=== PATIENT | female | born 1975 | race Hispanic/Latino ===

== ENCOUNTER 2022-12-02 13:06 | Day surgery (SDC) | payer BC ==
[2022-12-02 14:31] VITALS: BMI 31.2
[2022-12-02] MEDS ORDERED: hydrALAZINE 20 MG/ML VIAL SLOW IVP PRN (15:13)
[2022-12-02 15:50] LABS: Creatinine, Urine 173.91 mg/dL (47-110)
[2022-12-02 16:55] LABS: ALT (SGPT) 15 U/L (8-55); AST (SGOT) 19 U/L (5-34); Albumin 3.4 g/dL (3.5-5.0); Alkaline Phosphatase 98 U/L (40-110); Anion Gap 13 mmol/L (10-20); BUN (Urea Nitrogen) 12 mg/dL (7.0-18.7); Bilirubin, Total 0.2 mg/dL (0.2-1.2); Calc. Creatinine Clearance 129 mL/min (70-130); Calcium 9.1 mg/dL (7.8-10.44); Carbon Dioxide 19 mmol/L (22-29); Chloride 107 mmol/L (98-107); Estimated GFR 105; Globulin 3.6 g/dL (2.4-3.5); Glucose 78 mg/dL (70-105); Potassium 3.9 mmol/L (3.5-5.1); Sodium 135 mmol/L (136-145)
[2022-12-02 17:03] LABS: #Basophils 0.1 10x3/uL (0.0-0.2); #Eosinphils 0.2 10x3/uL (0.0-0.5); #Monocytes 1.2 10x3/uL (0.0-1.1); #Neutrophils 7.8 10x3/uL (1.5-8.4); %Basophils 0.4 % (0.0-2.0); %Eosinophils 1.4 % (0.0-6.0); %Lymphocytes 26.2 % (18.0-47.0); %Monocytes 9.6 % (0.0-10.0); Hematocrit 33.1 % (34.9-44.5); Hemoglobin 10.9 g/dL (12.0-15.5); Mean Corpuscular HGB CONC 32.9 g/dL (32.0-36.0); Mean Corpuscular Volume 91.2 fl (81.6-98.3); Mean Platelet Volume 10.7 fl (7.4-10.4); Platelet Count 337 10x3/uL (150-450); RBC Distribution Width 13.2 % (11.5-14.5); Red Blood Cell (RBC) Count 3.63 10x6/uL (3.90-5.03); White Blood Cell (WBC) Count 12.8 10x3/uL (3.5-10.5)
== END 2022-12-02 17:30 | disposition home or self-care (01) ==
LOC: CSHERS 13:06 → CSHLD/OP 13:29
PROVIDERS: ATTEND Family Medicine
DX: O16.3 Unspecified maternal hypertension, third trimester (principal); O99.283 Endocrine, nutritional and metabolic diseases complicating pregnancy, third trimester; E03.9 Hypothyroidism, unspecified; Z3A.31 31 weeks gestation of pregnancy
CPT/HCPCS: 36415; 80053; 82570; 84156; 85025; 99283

== ENCOUNTER 2022-12-29 17:18 | Observation (INO) | payer BC ==
[2022-12-29 17:56] VITALS: BMI 28.3
[2022-12-29] MEDS ORDERED: hydrALAZINE 20 MG/ML VIAL SLOW IVP PRN ×2 (18:06→19:36)
[2022-12-29] MEDS ORDERED: Acetaminophen 500 MG TAB PO SCH (18:15)
[2022-12-29 18:56] LABS: #Eosinphils 0.2 10x3/uL (0.0-0.5); #Monocytes 0.9 10x3/uL (0.0-1.1); %Basophils 0.4 % (0.0-2.0); %Eosinophils 1.4 % (0.0-6.0); %Monocytes 8.3 % (0.0-10.0); Hematocrit 32.3 % (34.9-44.5); Hemoglobin 10.8 g/dL (12.0-15.5); Mean Corpuscular HGB CONC 33.4 g/dL (32.0-36.0); Mean Corpuscular Hemoglobin 29.3 pg (27.0-33.0); Mean Corpuscular Volume 87.8 fl (81.6-98.3); Mean Platelet Volume 10.8 fl (7.4-10.4); Platelet Count 336 10x3/uL (150-450); RBC Distribution Width 13.3 % (11.5-14.5); Red Blood Cell (RBC) Count 3.68 10x6/uL (3.90-5.03); White Blood Cell (WBC) Count 10.5 10x3/uL (3.5-10.5)
[2022-12-29 19:01] LABS: ALT (SGPT) 9 U/L (8-55); AST (SGOT) 16 U/L (5-34); Albumin 3.2 g/dL (3.5-5.0); Alkaline Phosphatase 110 U/L (40-110); Anion Gap 15 mmol/L (10-20); BUN (Urea Nitrogen) 14 mg/dL (7.0-18.7); Bilirubin, Total 0.2 mg/dL (0.2-1.2); Calc. Creatinine Clearance 106 mL/min (70-130); Calcium 9.1 mg/dL (7.8-10.44); Carbon Dioxide 17 mmol/L (22-29); Chloride 106 mmol/L (98-107); Estimated GFR 97; Globulin 3.4 g/dL (2.4-3.5); Glucose 87 mg/dL (70-105); Potassium 3.8 mmol/L (3.5-5.1); Protein, Total 6.6 g/dL (6.0-8.3); Sodium 134 mmol/L (136-145)
[2022-12-29] MEDS ORDERED: Ondansetron PF 4 MG/2 ML Vial IVP PRN (19:36)
[2022-12-29] MEDS ORDERED: Acetaminophen 500 MG TAB PO PRN (19:36)
[2022-12-29] MEDS ORDERED: Docusate 100 MG CAP PO PRN (19:36)
[2022-12-29] MEDS ORDERED: Promethazine HCl 25 MG/ML VIAL IM PRN (19:36)
[2022-12-29] MEDS: Betamet Acet/Betamet Na Ph 30 MG/5 ML VIAL IM SCH (20:45)
[2022-12-30] MEDS: Labetalol HCl 100 MG TAB PO SCH ×2 (14:42→20:14)
[2022-12-30] MEDS: Betamet Acet/Betamet Na Ph 30 MG/5 ML VIAL IM SCH (20:31)
[2022-12-30 21:16] VITALS: BP 126/74; TEMP 97.9
== END 2022-12-30 20:40 | disposition home health service (06) ==
LOC: CSHLD/OP 17:18 → CSHLD 21:39 → CSHANTE 22:38
PROVIDERS: ADMIT Family Medicine; ATTEND Family Medicine
DX: O09.523 Supervision of elderly multigravida, third trimester (principal); O13.3 Gestational [pregnancy-induced] hypertension without significant proteinuria, third trimester; Z3A.35 35 weeks gestation of pregnancy
CPT/HCPCS: 59025; 76819; 80053; 82570; 84156; 85025; 96372; 99285; G0378; J0702

== ENCOUNTER 2023-01-12 18:00 | Inpatient (IN) | payer BC ==
[2023-01-12] MEDS ORDERED: fentaNYL 50 mcg/mL 1 mL Vial SLOW IVP PRN (19:55)
[2023-01-12] MEDS ORDERED: Ondansetron PF 4 MG/2 ML Vial IVP PRN (19:55)
[2023-01-12] MEDS ORDERED: HYDROcodone/Acetaminophen 5/325 mg Tablet PO PRN (19:55)
[2023-01-12] MEDS ORDERED: hydrALAZINE 20 MG/ML VIAL SLOW IVP PRN (19:55)
[2023-01-12] MEDS ORDERED: Tranexamic Acid 1,000 MG/10 ML VIAL IVP PRN (19:55)
[2023-01-12] MEDS ORDERED: Acetaminophen 500 MG TAB PO PRN (19:55)
[2023-01-12] MEDS ORDERED: Ibuprofen 800 MG TAB PO PRN (19:55)
[2023-01-12] MEDS ORDERED: Promethazine HCl 25 MG/ML VIAL IM PRN (19:55)
[2023-01-12] MEDS ORDERED: Methylergonovine 0.2 MG/ML VIAL IM PRN (19:55)
[2023-01-12] MEDS ORDERED: Misoprostol 200 MCG TAB PR PRN (19:55)
[2023-01-12] MEDS ORDERED: Diphenoxylate HCl/Atropine Tablet PO PRN (19:55)
[2023-01-12] MEDS ORDERED: Lidocaine 1% (PF) 30 ML VIAL SC PRN (19:55)
[2023-01-12] MEDS ORDERED: Carboprost 250 MCG/ML AMP IM PRN (19:55)
[2023-01-12 20:02] VITALS: BMI 32.5
[2023-01-12 20:18] LABS: Hematocrit 31.9 % (34.9-44.5); Hemoglobin 10.5 g/dL (12.0-15.5); Mean Corpuscular HGB CONC 32.9 g/dL (32.0-36.0); Mean Corpuscular Hemoglobin 28.8 pg (27.0-33.0); Mean Corpuscular Volume 87.6 fl (81.6-98.3); Mean Platelet Volume 11.3 fl (7.4-10.4); Platelet Count 294 10x3/uL (150-450); RBC Distribution Width 14.2 % (11.5-14.5); Red Blood Cell (RBC) Count 3.64 10x6/uL (3.90-5.03); White Blood Cell (WBC) Count 11.1 10x3/uL (3.5-10.5)
[2023-01-12] MEDS ORDERED: Misoprostol 100 MCG TAB ONE (20:20)
[2023-01-12] MEDS ORDERED: Lactated Ringer's 1,000 ML IV SCH (20:30)
[2023-01-12] MEDS: Misoprostol 100 MCG TAB PO SCH (20:30)
[2023-01-12] MEDS ORDERED: Oxytocin 30 units/NS 500 ML 500 ML IV SCH ×3 (20:30)
[2023-01-12 20:51] LABS: Syphilis Antibody Nonreactive (Nonreactive)
[2023-01-12 20:52] LABS: HBSAg Index 0.21 S/CO (0-0.99); Hep B Surf Ag - L&D Non-Reactive S/CO (NonReactive)
[2023-01-13] MEDS: Misoprostol 100 MCG TAB PO SCH ×2 (00:30→04:12)
[2023-01-13 07:00] LABS: ALT (SGPT) 10 U/L (8-55); AST (SGOT) 13 U/L (5-34); Albumin 3.1 g/dL (3.5-5.0); Alkaline Phosphatase 132 U/L (40-110); Anion Gap 14 mmol/L (10-20); BUN (Urea Nitrogen) 15 mg/dL (7.0-18.7); Bilirubin, Total 0.2 mg/dL (0.2-1.2); Calc. Creatinine Clearance 153 mL/min (70-130); Calcium 8.5 mg/dL (7.8-10.44); Carbon Dioxide 16 mmol/L (22-29); Chloride 109 mmol/L (98-107); Estimated GFR 111; Globulin 3.2 g/dL (2.4-3.5); Glucose 80 mg/dL (70-105); Potassium 3.6 mmol/L (3.5-5.1); Protein, Total 6.3 g/dL (6.0-8.3); Sodium 135 mmol/L (136-145)
[2023-01-13] MEDS ORDERED: Magnesium Sulfate 20 gm/500 ml 20 GM/500 ML BAG ONE ×2 (07:41→15:05)
[2023-01-13] MEDS: Labetalol HCl 100 MG TAB PO SCH ×2 (09:58→22:44)
[2023-01-13] MEDS ORDERED: Oxytocin 30 units/NS 500 ML 500 ML ONE (10:17)
[2023-01-13] MEDS ORDERED: fentaNYL/Ropivacaine Epidural 100 ML ONE (12:33)
[2023-01-13] MEDS ORDERED: Promethazine HCl 25 MG/ML VIAL IM PRN ×2 (13:34→19:00)
[2023-01-13] MEDS ORDERED: Ondansetron PF 4 MG/2 ML Vial IVP PRN ×2 (13:34→19:00)
[2023-01-13] MEDS ORDERED: ePHEDrine Sulfate 50 MG/10 ML VIAL SLOW IVP PRN (13:34)
[2023-01-13] MEDS ORDERED: Naloxone HCl 0.4 mg/ml Vial IVP PRN ×2 (13:34)
[2023-01-13] MEDS ORDERED: Acetaminophen 325 MG TAB PO PRN (13:34)
[2023-01-13] MEDS ORDERED: Lactated Ringer's 500 ML IV PRN (13:34)
[2023-01-13] MEDS ORDERED: Moisturizing Cream (Eucerin) 113 GM JAR TOP PRN (13:34)
[2023-01-13] MEDS ORDERED: diphenhydrAMINE 50 MG/ML VIAL IVP PRN (13:34)
[2023-01-13] MEDS ORDERED: fentaNYL 2 mcg/Ropivacaine 0.2% Epidural 100 ML CADD EPIDURAL SCH (13:45)
[2023-01-13] MEDS ORDERED: Communication Order-Pharmacy FS SCH (13:45)
[2023-01-13] MEDS ORDERED: HYDROcodone/Acetaminophen 5/325 mg Tablet PO PRN (19:00)
[2023-01-13] MEDS ORDERED: Boostrix 0.5 ML (Tdap) VIAL (>/=7 yrs of age) IM ONE (19:00)
[2023-01-13] MEDS ORDERED: hydrALAZINE 20 MG/ML VIAL SLOW IVP PRN ×2 (19:00)
[2023-01-13] MEDS ORDERED: diphenhydrAMINE 25 MG CAP PO PRN (19:00)
[2023-01-13] MEDS ORDERED: Lorazepam 2 MG/ML VIAL SLOW IVP PRN (19:00)
[2023-01-13] MEDS ORDERED: Milk Of Magnesia 30 ML UDCUP PO PRN (19:00)
[2023-01-13] MEDS ORDERED: Labetalol HCl 100 MG/20 ML VIAL SLOW IVP PRN (19:00)
[2023-01-13] MEDS ORDERED: Bisacodyl 10 MG SUPP PR PRN (19:00)
[2023-01-13] MEDS ORDERED: Benzocaine-Menthol 82.5 ML CAN TOP PRN (19:00)
[2023-01-13] MEDS ORDERED: Magnesium Sulfate 20 gm/500 ml 20 GM/500 ML BAG IVPB SCH (19:00)
[2023-01-13] MEDS ORDERED: Calcium Gluc 4.6 MEQ/10 ML (100 MG/ML) SLOW IVP PRN (19:00)
[2023-01-13] MEDS ORDERED: Lanolin Ointment 7 GM TUBE TOP PRN (19:00)
[2023-01-13] MEDS: Ibuprofen 800 MG TAB PO SCH (23:42)
[2023-01-14 03:42] LABS: #Basophils 0.1 10x3/uL (0.0-0.2); #Monocytes 1.1 10x3/uL (0.0-1.1); #Neutrophils 18.4 10x3/uL (1.5-8.4); %Basophils 0.2 % (0.0-2.0); %Eosinophils 0.1 % (0.0-6.0); %Lymphocytes 9.8 % (18.0-47.0); %Neutrophils 84.2 % (40.0-75.0); Hematocrit 29.3 % (34.9-44.5); Hemoglobin 10.3 g/dL (12.0-15.5); Mean Corpuscular HGB CONC 35.2 g/dL (32.0-36.0); Mean Corpuscular Hemoglobin 29.9 pg (27.0-33.0); Mean Corpuscular Volume 84.9 fl (81.6-98.3); Platelet Count 270 10x3/uL (150-450); RBC Distribution Width 14.1 % (11.5-14.5); Red Blood Cell (RBC) Count 3.45 10x6/uL (3.90-5.03); White Blood Cell (WBC) Count 21.9 10x3/uL (3.5-10.5)
[2023-01-14 04:00] LABS: ALT (SGPT) 8 U/L (8-55); AST (SGOT) 19 U/L (5-34); Albumin 2.6 g/dL (3.5-5.0); Alkaline Phosphatase 113 U/L (40-110); Anion Gap 15 mmol/L (10-20); BUN (Urea Nitrogen) 11 mg/dL (7.0-18.7); Bilirubin, Total 0.4 mg/dL (0.2-1.2); Calc. Creatinine Clearance 142 mL/min (70-130); Calcium 7.2 mg/dL (7.8-10.44); Carbon Dioxide 17 mmol/L (22-29); Chloride 102 mmol/L (98-107); Estimated GFR 109; Globulin 2.9 g/dL (2.4-3.5); Glucose 90 mg/dL (70-105); Magnesium 6.1 mg/dL (1.6-2.6); Potassium 3.6 mmol/L (3.5-5.1); Protein, Total 5.5 g/dL (6.0-8.3); Sodium 130 mmol/L (136-145)
[2023-01-14] MEDS: Labetalol HCl 100 MG TAB PO SCH ×3 (05:59→21:41)
[2023-01-14] MEDS: Prenatal Vitamin 1 TAB PO SCH (09:06)
[2023-01-14] MEDS: Ferrous Sulfate 325 MG TAB PO SCH ×2 (09:06→19:16)
[2023-01-14] MEDS: Docusate 100 MG CAP PO SCH ×3 (09:06→21:41)
[2023-01-14] MEDS: Ibuprofen 800 MG TAB PO SCH ×2 (14:07→21:42)
[2023-01-15] MEDS: Ibuprofen 800 MG TAB PO SCH ×4 (05:17→22:00)
[2023-01-15] MEDS: Labetalol HCl 100 MG TAB PO SCH ×3 (05:18→22:00)
[2023-01-15] MEDS: Ferrous Sulfate 325 MG TAB PO SCH ×2 (07:35→18:45)
[2023-01-15] MEDS: Prenatal Vitamin 1 TAB PO SCH (08:29)
[2023-01-15] MEDS: Docusate 100 MG CAP PO SCH ×2 (08:29→22:00)
[2023-01-16] MEDS: Ibuprofen 800 MG TAB PO SCH (06:25)
[2023-01-16] MEDS: Labetalol HCl 100 MG TAB PO SCH ×2 (06:25→07:18)
[2023-01-16] MEDS: Ferrous Sulfate 325 MG TAB PO SCH (07:16)
[2023-01-16] MEDS: Misoprostol 100 MCG TAB PO SCH (07:17)
[2023-01-16] MEDS: Prenatal Vitamin 1 TAB PO SCH (07:52)
[2023-01-16] MEDS: Docusate 100 MG CAP PO SCH (07:52)
[2023-01-16] MEDS ORDERED: Betamet Acet/Betamet Na Ph 30 MG/5 ML VIAL ONE (08:55)
[2023-01-16 12:16] VITALS: BP 143/90; TEMP 98.6
== END 2023-01-16 13:30 | disposition home or self-care (01) | DRG 807 ==
LOC: CSHLD 18:58 → CSHPP 01-14 18:45
PROVIDERS: ADMIT Family Medicine; ATTEND Family Medicine
PROC: 10E0XZZ Delivery of Products of Conception, External Approach (ICD-10-PCS; principal; 2023-01-13)
PROC: 0KQM0ZZ Repair Perineum Muscle, Open Approach (ICD-10-PCS; 2023-01-13)
PROC: 10907ZC Drainage of Amniotic Fluid, Therapeutic from Products of Conception, Via Natural or Artificial Opening (ICD-10-PCS; 2023-01-13)
PROC: 3E0P7VZ Introduction of Hormone into Female Reproductive, Via Natural or Artificial Opening (ICD-10-PCS; 2023-01-13)
PROC: 10H07YZ Insertion of Other Device into Products of Conception, Via Natural or Artificial Opening (ICD-10-PCS; 2023-01-13)
PROC: 3E033XZ Introduction of Vasopressor into Peripheral Vein, Percutaneous Approach (ICD-10-PCS; 2023-01-13)
PROC: 3E033VJ Introduction of Other Hormone into Peripheral Vein, Percutaneous Approach (ICD-10-PCS; 2023-01-13)
DX: O14.14 Severe pre-eclampsia complicating childbirth (principal); Z37.0 Single live birth; Z3A.37 37 weeks gestation of pregnancy; O99.284 Endocrine, nutritional and metabolic diseases complicating childbirth; E03.9 Hypothyroidism, unspecified; O70.1 Second degree perineal laceration during delivery
CPT/HCPCS: 36415; 51702; 71045; 80053; 83735; 85025; 85027; 86780; 86850; 86900; 86901; 87340; J0360; J2405; J2550; J3010; J3475; J3490